=== PATIENT | male | born 1970 | race African-American/Black ===

== ENCOUNTER 2016-08-30 13:20 | Emergency (ER) | payer OTHER, BC ==
--- NOTE | 2016-08-30 14:23 | ER Document Report ---
ED Medical Screen (RME) - General Stated Complaint: ABDOMINAL PAIN Time seen by provider: 14:18 Mode of Arrival: Ambulatory Information source: Patient Notes: 46-year-old male nonsmoker with a history of hypertension woke up Tuesday morning with midline to right-sided abdominal discomfort and he feels a lump that has been there ever since. Bowel movements are normal. No history of abdominal surgeries, he thinks it might be a hernia but he doesn't know for sure. consult Dr. Gallegos who states put him in a room to do an abdominal exam before any imaging is ordered. I have greeted and performed a rapid initial assessment of this patient. A comprehensive ED assessment, evaluation of the patient, analysis of test results , and completion of the medical decision making process will be conducted by additional ED providers. TRAVEL OUTSIDE OF THE [place] IN LAST 30 DAYS: No - Related Data Allergies/Adverse Reactions: ppd converter Allergy (Uncoded 08/30/16 14:22) Past Medical History - Past Medical History Cardiac Medical History: Reports: Hx Hypertension Physical Exam - Vital signs Vitals: Pulse Resp BP Pulse Ox 86 18 147/80 H 95 08/30/16 13:39 08/30/16 13:39 08/30/16 13:39 08/30/16 13:39 Course - Vital Signs Vital signs: Temp Pulse Resp BP Pulse Ox 86 18 147/80 H 95 08/30/16 13:39 08/30/16 13:39 08/30/16 13:39 08/30/16 13:39
[2016-08-30 15:04] LABS: ABSOLUTE EOSINOPHILS # (AUTO) 0.2 10^3/uL (0.0-0.6); ABSOLUTE LYMPHOCYTES (AUTO) 2.4 10^3/uL (0.5-4.7); ABSOLUTE MONOCYTES (AUTO) 0.8 10^3/uL (0.1-1.4); ABSOLUTE NEUT (AUTO) 4.5 10^3/uL (1.7-8.2); BASOPHILS % (AUTO) 0.3 % (0-2); EOSINOPHILS % (AUTO) 2.3 % (0-6); HEMATOCRIT 44.9 % (37.9-51.0); HEMOGLOBIN 15.4 g/dL (13.5-17.0); HGB HCT DIFFERENCE 1.3; LYMPHOCYTES % (AUTO) 30.6 % (13-45); MEAN CORPUSCULAR HEMOGLOBIN 29.4 pg (27.0-33.4); MEAN CORPUSCULAR HGB CONC 34.3 g/dL (32.0-36.0); MEAN CORPUSCULAR VOLUME 86 fl (80-97); MONOCYTES % (AUTO) 10.1 % (3-13); RED BLOOD COUNT 5.23 10^6/uL (4.35-5.55); RED CELL DISTRIBUTION WIDTH 14.3 % (11.5-14.0); SEGMENTED NEUTROPHILS % (AUTO) 56.7 % (42-78); WHITE BLOOD COUNT 7.9 10^3/uL (4.0-10.5)
[2016-08-30 15:17] LABS: ALANINE AMINOTRANSFERASE 34 U/L (21-72); ALBUMIN 4.4 g/dL (3.5-5.0); ALKALINE PHOSPHATASE 72 U/L (38-126); ANION GAP 11 (5-19); ASPARTATE AMINO TRANSFERASE 27 U/L (17-59); BILIRUBIN,TOTAL 0.8 mg/dL (0.2-1.3); BLOOD UREA NITROGEN 14 mg/dL (7-20); CARBON DIOXIDE 27 mmol/L (22-30); CHLORIDE 106 mmol/L (98-107); CREATININE RESULT 1.38 mg/dL (0.52-1.25); GLUCOSE 98 mg/dL (75-110); LIPASE 34.2 U/L (23-300); POTASSIUM 4.1 mmol/L (3.6-5.0); SODIUM 144.1 mmol/L (137-145); TOTAL PROTEIN 7.5 g/dL (6.3-8.2)
--- NOTE | 2016-08-30 19:04 | ER Document Report ---
ED GI/ - General Chief Complaint: Abdominal Pain Stated Complaint: ABDOMINAL PAIN Time seen by provider: 19:04 Mode of Arrival: Ambulatory Information source: Patient TRAVEL OUTSIDE OF THE [place] IN LAST 30 DAYS: No - HPI Patient complains to provider of: Abdominal pain Onset: Other - 2 days Timing/Duration: Persistent Quality of pain: Achy Severity at maximum: Mild Severity in ED: Mild Pain Level: 2 Location: Other - Just superior to the umbilicus Associated symptoms: None Exacerbated by: Denies Relieved by: Denies Similar symptoms previously: No Recently seen / treated by doctor: No Notes: 08/31/16 03:28 Patient is a 46-year-old male presenting to the emergency room complaining of painful swollen "knot", just above his umbilicus that he first noticed 2 days ago, he denies any nausea, vomiting or diarrhea, no fever or chills, having normal bowel movements and passing gas normally - Related Data Allergies/Adverse Reactions: ppd converter Allergy (Uncoded 08/30/16 14:22) Past Medical History - General Information source: Patient - Social History Smoking Status: Never Smoker Chew tobacco use (# tins/day): No Frequency of alcohol use: None Drug Abuse: None Family History: Reviewed & Not Pertinent Patient has suicidal ideation: No Patient has homicidal ideation: No - Past Medical History Cardiac Medical History: Reports: Hx Hypertension Renal/ Medical History: Denies: Hx Peritoneal Dialysis Review of Systems - Review of Systems Constitutional: No symptoms reported EENT: No symptoms reported Cardiovascular: No symptoms reported Respiratory: No symptoms reported Gastrointestinal: See HPI Genitourinary: No symptoms reported Male Genitourinary: No symptoms reported Musculoskeletal: No symptoms reported Skin: No symptoms reported Hematologic/Lymphatic: No symptoms reported Neurological/Psychological: No symptoms reported -: Yes All other systems reviewed and negative Physical Exam - Vital signs Vitals: Pulse Resp BP Pulse Ox 86 18 147/80 H 95 08/30/16 13:39 08/30/16 13:39 08/30/16 13:39 08/30/16 13:39 Interpretation: Normal - General General appearance: Appears well, Alert - HEENT Head: Normocephalic, Atraumatic Eyes: Normal Pupils: PERRL - Respiratory Respiratory status: No respiratory distress Chest status: Nontender Breath sounds: Normal Chest palpation: Normal - Cardiovascular Rhythm: Regular Heart sounds: Normal auscultation Murmur: No - Abdominal Inspection: Obese Distension: No distension Bowel sounds: Normal Tenderness: Other - Patient with small mildly tender 2-3 cm mass in the mid line of the abdomen just above the umbilicus Organomegaly: No organomegaly - Back Back: Normal, Nontender - Extremities General upper extremity: Normal inspection, Nontender, Normal color, Normal ROM , Normal temperature General lower extremity: Normal inspection, Nontender, Normal color, Normal ROM , Normal temperature, Normal weight bearing. No: Jon's sign - Neurological Neuro grossly intact: Yes Cognition: Normal Orientation: AAOx4 [place] Coma Scale Eye Opening: Spontaneous [place] Coma Scale Verbal: Oriented [place] Coma Scale Motor: Obeys Commands [place] Coma Scale Total: 15 Speech: Normal Motor strength normal: LUE, RUE, LLE, RLE Sensory: Normal - Psychological Associated symptoms: Normal affect, Normal mood - Skin Skin Temperature: Warm Skin Moisture: Dry Skin Color: Normal Course - Re-evaluation Re-evalutation: 08/31/16 03:30 CT scan shows evidence of a fat-containing ventral hernia, patient does have mild tenderness corresponding to this area, however he was discussed with the surgeon who reviewed the CT scan and recommended that patient follow up with the surgical clinic as an outpatient, this plan was discussed with patient who acknowledges understanding and agreement - Vital Signs Vital signs: Temp Pulse Resp BP Pulse Ox 97.4 F 58 L 16 131/86 H 98 08/30/16 19:24 08/30/16 19:24 08/30/16 19:24 08/30/16 19:24 08/30/16 19:24 - Laboratory Result Diagrams: 08/30/16 14:46 08/30/16 14:46 Laboratory results interpreted by me: 08/30/16 08/30/16 14:46 14:46 RDW 14.3 H Creatinine 1.38 H Est GFR (Non-Af Amer) 56 L - Diagnostic Test Radiology reviewed: Image reviewed, Reports reviewed Discharge - Discharge Clinical Impression: Hernia, ventral Qualifiers: Obstruction and gangrene presence: without obstruction or gangrene Qualified Code(s): K43.9 - Ventral hernia without obstruction or gangrene Condition: Stable Disposition: HOME, SELF-CARE Instructions: Abdominal Pain ([facility]), Hernia ([facility]) Additional Instructions: Follow-up with a surgeon within the next week. Return to the emergency room immediately if symptoms worsen or any additional concerns. Prescriptions: Hydrocodone/Acetaminophen [Hydrocodon-Acetaminophen 5-325] 1 each PO Q6 #14 tablet Forms: Return to Work Referrals: ELIAS DUVAL NP [Primary Care Provider] - Follow up as needed TAB LEBRON MD [ACTIVE STAFF] - Follow up as needed
[2016-08-30 19:26] VITALS: BP 131/86
== END 2016-08-30 19:25 | disposition home or self-care (01) ==
LOC: ER 13:20
DX: K43.9 Ventral hernia without obstruction or gangrene (principal); R10.9 Unspecified abdominal pain; I10 Essential (primary) hypertension
CPT/HCPCS: 36415; 74177; 80053; 83690; 85025; 99284

== ENCOUNTER 2018-04-04 01:24 | Emergency (ER) | payer OTHER, BC ==
[2018-04-04] MEDS ORDERED: ONDANSETRON HCL INJ/PF 4 MG/2 ML SDV IV ONE (02:13)
[2018-04-04] MEDS ORDERED: MORPHINE SULFATE 10 MG/ML INJ IV ONE (02:13)
[2018-04-04] MEDS ORDERED: NORMAL SALINE 1000 ML 1,000 ML IV ONE ×2 (02:13→05:30)
[2018-04-04 03:14] LABS: ABSOLUTE BASOPHILS # (AUTO) 0.1 10^3/uL (0.0-0.2); ABSOLUTE EOSINOPHILS # (AUTO) 0.1 10^3/uL (0.0-0.6); ABSOLUTE LYMPHOCYTES (AUTO) 2.4 10^3/uL (0.5-4.7); ABSOLUTE MONOCYTES (AUTO) 1.3 10^3/uL (0.1-1.4); ABSOLUTE NEUT (AUTO) 11.8 10^3/uL (1.7-8.2); BASOPHILS % (AUTO) 0.8 % (0-2); EOSINOPHILS % (AUTO) 0.4 % (0-6); HEMATOCRIT 44.6 % (37.9-51.0); HEMOGLOBIN 15.3 g/dL (13.5-17.0); LYMPHOCYTES % (AUTO) 15.2 % (13-45); MEAN CORPUSCULAR HEMOGLOBIN 29.6 pg (27.0-33.4); MEAN CORPUSCULAR HGB CONC 34.2 g/dL (32.0-36.0); MEAN CORPUSCULAR VOLUME 87 fl (80-97); PLATELET COUNT 298 10^3/uL (150-450); RED BLOOD COUNT 5.15 10^6/uL (4.35-5.55); RED CELL DISTRIBUTION WIDTH 14.2 % (11.5-14.0); SEGMENTED NEUTROPHILS % (AUTO) 75.6 % (42-78); TOTAL CELLS COUNTED % (AUTO) 100 %; WHITE BLOOD COUNT 15.6 10^3/uL (4.0-10.5)
[2018-04-04 03:27] LABS: APPEARANCE,URINE CLEAR; BILIRUBIN,URINE NEGATIVE (NEGATIVE); GLUCOSE, URINE NEGATIVE (NEGATIVE); KETONES,URINE 100 mg/dL (NEGATIVE); LEUKOCYTE ESTERASE,URINE NEGATIVE (NEGATIVE); NITRITE,URINE NEGATIVE (NEGATIVE); PROTEIN,URINE 100 mg/dL (NEGATIVE); UROBILINOGEN,URINE NEGATIVE mg/dL (<2.0)
[2018-04-04 03:30] LABS: URINE SPECIFIC GRAVITY 1.026
--- NOTE | 2018-04-04 03:30 | ER Document Report ---
ED General - General Chief Complaint: Epigastric Pain Stated Complaint: CHEST PAIN Time Seen by Provider: 04/04/18 01:49 Notes: Patient is a 47-year-old male presenting to the emergency room complaining of left lower abdominal pain. States the abdominal discomfort started yesterday morning. States today he vomited x1 denying blood, denies diarrhea, fever, dysuria, hematuria, penile discharge, epigastric pain, chest pain, shortness of breath. States he was to his primary care provider today who prescribed him clarithromycin, omeprazole, and flagyl states he has taken all of these once today. Patient states he is unsure of what his primary care diagnosed him with. States the pain increased this evening which is why he presents to the emergency room. Patient denies history of diverticulitis or H. pylori. Patient also denies history of GERD or taking [id number] indigestion medications. States at no time did he have epigastric pain or indigestion, stated when he went to primary care he expressed the same pain in his left lower quadrant that he has now. Patient does have a history of kidney stones states his last stone was in 2011 states at that time he had more pain in his lower back. Currently denies lower back pain. Past medical history: Hypertension, kidney stones, TB Medications: Lisinopril Allergies: None Surgeries: Vasectomy Patient denies alcohol use, smoking, illicit drug use. TRAVEL OUTSIDE OF THE [place] IN LAST 30 DAYS: No - Related Data Allergies/Adverse Reactions: ppd converter Allergy (Uncoded 08/30/16 14:22) Past Medical History - General Information source: Patient - Social History Smoking Status: Unknown if Ever Smoked Lives with: Family Family History: Reviewed & Not Pertinent Patient has suicidal ideation: No Patient has homicidal ideation: No - Past Medical History Cardiac Medical History: Reports: Hx Hypertension - on meds Denies: Hx Coronary Artery Disease, Hx Heart Attack Pulmonary Medical History: Denies: Hx Asthma, Hx Bronchitis, Hx COPD, Hx Pneumonia Neurological Medical History: Denies: Hx Cerebrovascular Accident, Hx Seizures Renal/ Medical History: Denies: Hx Peritoneal Dialysis Musculoskeletal Medical History: Denies Hx Arthritis - Immunizations Hx Diphtheria, Pertussis, Tetanus Vaccination: No - ppd converter Review of Systems - Review of Systems Constitutional: See HPI EENT: No symptoms reported Cardiovascular: See HPI Respiratory: No symptoms reported Gastrointestinal: See HPI Genitourinary: See HPI Male Genitourinary: See HPI Musculoskeletal: See HPI Skin: No symptoms reported Hematologic/Lymphatic: No symptoms reported Neurological/Psychological: No symptoms reported Physical Exam - Vital signs Vitals: Resp Pulse Ox 18 97 04/04/18 01:36 04/04/18 01:36 - Notes Notes: GENERAL: Alert, interacts well. No acute distress. HEAD: Normocephalic, atraumatic. EYES: Pupils equal, round, and reactive to light. Extraocular movements intact. ENT: Oral mucosa moist, tongue midline. NECK: Full range of motion. Supple. Trachea midline. LUNGS: Clear to auscultation bilaterally, no wheezes, rales, or rhonchi. No respiratory distress. HEART: Regular rate and rhythm. No murmur ABDOMEN: Soft, non-distended. Bowel sounds present in all 4 quadrants. Dull pain in left lower quadrant, no Pantoja sign, no McBurney's point tenderness, no epigastric pain. EXTREMITIES: Moves all 4 extremities spontaneously. No edema, normal radial and dorsalis pedis pulses bilaterally. No cyanosis. BACK: no cervical, thoracic, lumbar midline tenderness. No saddle anesthesia, normal distal neurovascular exam. NEUROLOGICAL: Alert and oriented x3. Normal speech. PSYCH: Normal affect, normal mood. SKIN: Warm, dry, normal turgor. No rashes or lesions noted. No erythema, swelling or tenderness to bilateral testes. Course - Re-evaluation Re-evalutation: WBC 15.[address] Pain controlled with Morphine. CT results discussed with Dr. Up who recommends consultation with Dr. Vargas for surgery consult. Discussed case with Dr. Vargas who stated that he is ok with the pt. following up in office with Dr. Fry. Contact information will be given. Pt. is currently pain free, abd SNT, but due to inflammation on CT, lab results , and location of pain abx for diverticulitis will be given. Return precautions given. Pt. denies chest or epigastric pain entire stay in the ED. - Vital Signs Vital signs: Temp Pulse Resp BP Pulse Ox 17 157/99 H 97 04/04/18 06:28 04/04/18 06:28 04/04/18 06:28 - Laboratory Result Diagrams: 04/04/18 03:00 04/04/18 03:00 Laboratory results interpreted by me: 04/04/18 04/04/18 04/04/18 02:55 03:00 03:00 WBC 15.6 H RDW 14.2 H Absolute Neutrophils 11.8 H Glucose 127 H Direct Bilirubin 0.6 H Total Protein 8.4 H Urine Protein 100 H Urine Ketones 100 H Urine Ascorbic Acid 20 H Discharge - Discharge Clinical Impression: Diverticulitis Ventral hernia Qualifiers: Obstruction and gangrene presence: without obstruction or gangrene Qualified Code(s): K43.9 - Ventral hernia without obstruction or gangrene Condition: Stable Disposition: HOME, SELF-CARE Additional Instructions: As we discussed you are to follow-up with Dr. Fry who is a surgeon. His contact information is within this paperwork. Also as we discussed you should take the Ciprofloxacin I have prescribed as well as the Metronidazole and Omeprazole that your primary care physician prescribed. You can stop taking the Clarithromycin. Return to the emergency room should the abdominal pain increase, you develop a fever, increased vomiting, or any other concerning symptoms Prescriptions: Ciprofloxacin HCl [Cipro 500 mg Tablet] 500 mg PO BID #20 tablet Referrals: ELIAS DUVAL NP [Primary Care Provider] - Follow up as needed RICA FRY MD [ACTIVE STAFF] - Follow up as needed
[2018-04-04 03:31] LABS: ALANINE AMINOTRANSFERASE 37 U/L (21-72); ALBUMIN 4.6 g/dL (3.5-5.0); ALKALINE PHOSPHATASE 83 U/L (38-126); ANION GAP 9 (5-19); ASPARTATE AMINO TRANSFERASE 33 U/L (17-59); BILIRUBIN,DIRECT 0.6 mg/dL (0.0-0.4); BILIRUBIN,TOTAL 1.1 mg/dL (0.2-1.3); BLOOD UREA NITROGEN 11 mg/dL (7-20); CALCIUM 9.5 mg/dL (8.4-10.2); CARBON DIOXIDE 29 mmol/L (22-30); CHLORIDE 101 mmol/L (98-107); GLUCOSE 127 mg/dL (75-110); POTASSIUM 4.4 mmol/L (3.6-5.0); SODIUM 138.8 mmol/L (137-145); TOTAL PROTEIN 8.4 g/dL (6.3-8.2)
[2018-04-04 03:31] LABS: COLOR,URINE DARK YELLOW
--- NOTE | 2018-04-04 04:25 | RADIOLOGY REPORT (SQ) ---
EXAM DESCRIPTION: CT ABDOMEN PELVIS WITH IV CONTRAST COMPLETED DATE/TME: 04/04/2018 03:16 CLINICAL HISTORY: 47 years, Male, LLQ pain COMPARISON: None. TECHNIQUE: Axial CT images were obtained of the abdomen and pelvis after the administration of IV contrast. Sagittal and coronal reformats were performed.[id number] Images stored on PACS. All CT scanners at this facility use dose modulation, iterative reconstruction, and/or weight based dosing when appropriate to reduce radiation dose to as low as reasonably achievable (ALARA). COMPARISON: 08/30/2016 [facility]: Dose Right [facility]: CareDose [facility]: Dose Right [facility]: Teradose 4D [facility]: [employer] LIMITATIONS: None. FINDINGS: The lung bases are clear. The liver is hypodense. The gallbladder, pancreas, and adrenal glands are unremarkable. Multiple hypodensities have developed within the spleen, which was not present on the prior. Both kidneys appear unremarkable. There is no evidence of hydronephrosis. There is no intraperitoneal free air or fluid. There is no lymphadenopathy. There is a fat-containing ventral hernia with stranding. There is mild stranding along a fat-containing umbilical hernia. The stomach, small bowel, appendix, and colon appear unremarkable. The urinary bladder and prostate gland are unremarkable. There are no lytic or blastic bone lesions. IMPRESSION: Small hypodensities within the spleen, which were not seen on the prior exam. This may represent areas of infarction, masses, or cyst/hemangioma. Fat-containing ventral hernia with stranding, which may represent fat necrosis or inflammation. TECHNICAL DOCUMENTATION: Quality ID # [id number]: Final reports with documentation of one or more dose reduction techniques (e.g., Automated exposure control, adjustment of the mA and/or kV according to patient size, use of iterative reconstruction technique) 2010 [employer]- All Rights Reserved
[2018-04-04 06:30] VITALS: BP 157/99
--- NOTE | 2018-04-04 08:17 | EKG REPORT ---
SEVERITY:- NORMAL ECG - SINUS RHYTHM : Confirmed by: Shira Quinones MD 04-Apr-2018 08:16:58
== END 2018-04-04 06:57 | disposition home or self-care (01) ==
LOC: ER 01:24
DX: K57.92 Diverticulitis of intestine, part unspecified, without perforation or abscess without bleeding (principal); K43.9 Ventral hernia without obstruction or gangrene; R10.32 Left lower quadrant pain; R11.10 Vomiting, unspecified; I10 Essential (primary) hypertension; Z87.442 Personal history of urinary calculi; Z79.899 Other long term (current) drug therapy
CPT/HCPCS: 93005; 99285; 96361; 96374; 96375; 36415; 85025; 80053; 81001; 74177; 93010; J2270; J2405; J7030